=== PATIENT | male | born 1995 | race Caucasian/White ===

== ENCOUNTER 2025-02-13 13:59 | Emergency (ER) | payer SELFPAY ==
--- OUTSIDE RECORDS SUMMARY | 2025-02-13 14:06 | XMS_ITS | Clinical Summary ---
Author Organization [facility] [address] Address [address] [place] [address] Care Team Providers Care Engineering Test Specialist Name Role Phone Unavailable Primary Care Provider Unavailabl e Allergies No known active allergies Medications No known medications Active Problems Problem Noted Date Diagnosed Date Hypertrophic cardiomyopathy 05/06/2019 Obesity 11/20/2008 Heart disease Psychiatric disorder Family History Medical History Relation Name Comments No Known Problems Brother Arrhythmia Father COPD Mother No Known Problems Sister Relation Name Status Comments Brother Father Mother Alive Sister Alive Social History Tobacco Use Types Packs/Day Years Used Date Smoking Tobacco: Former Cigarettes 1.5 3 0 06/02/2013 - 06/02/2016 Smokeless Tobacco: Former Chew Quit: 06/02/2016 Sex and Gender Information Value Date Recorded Sex Assigned at Not on file 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 Gender Identity Not on file Sexual Orientation Not on file Occupation Industry Job Start Date Job End Date Not on file Not on file Not on file Not on file Last Filed Vital Signs Vital Sign Reading Time Taken Comments Blood Pressure 148/67 12/05/2019 1:48 PM CDT Pulse 66 12/05/2019 1:48 PM CDT Temperature 37 C (98.6 F) 12/05/2019 1:48 PM CDT Respiratory Rate 17 10/03/2015 5:33 PM CDT Oxygen Saturation 99% 12/05/2019 1:48 PM CDT Inhaled Oxygen Concentration - - Weight 118.8 kg (262 lb) 12/05/2019 1:48 PM CDT Height 185.4 cm (6' 1 ) 12/05/2019 1:48 PM CDT Body Mass Index 34.57 12/05/2019 1:48 PM CDT Plan of Treatment Health Maintenance Due Date Last Done Comments DTAP/TDAP/TD VACCINES (1 - Tdap) 2013 HEPATITIS B VACCINES (1 of 3 - 19+ 3-dose series) 11/2013 HPV VACCINES (1 - 3-dose SCDM series) 2021 INFLUENZA VACCINE (#1) 2024 Insurance
[2025-02-13 14:09] VITALS: BP 120/86; PULSE 87; RESP 18; TEMP 36.7; O2SAT 98; BMI 28.5
--- NOTE | 2025-02-13 14:16 | ECG_ITS ---
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 Measurements Intervals [place] Rate: 79 P: 60 ND: 168 QRS: -16 QRSD: 109 T: 30 QT: 363 QTc: 418 Interpretive Statements SINUS RHYTHM WITH MARKED SINUS ARRHYTHMIA SEPTAL MYOCARDIAL INFARCTION , OF INDETERMINATE AGE [40+ ms Q WAVE IN V1/V2] INTERVENTRICULAR CONDUCTION DELAY Compared to ECG 11/08/2014 19:14:13 Sinus bradycardia no longer present T-wave abnormality no longer present Possible ischemia no longer present Myocardial infarct finding still present Electronically Signed On 02-15-2025 08:39:45 CDT by Charlie Beverly M.D. [id number]
--- NOTE | 2025-02-13 14:47 | XR_ITS ---
WS: [id number] XR chest 1V portable [id number] REASON FOR EXAM: dyspnea/cough FINDINGS: Cardiac device over the left chest with left subclavian vein lead to the right ventricle. Heart and mediastinum are within normal limits. Calcified granulomatous disease bilaterally. No pulmonary parenchymal or pleural abnormality is identified. No significant abnormality of the bony thorax. XR/XR chest 1V portable [id number] IMPRESSION: No acute chest abnormality.
--- NOTE | 2025-02-13 15:07 | ECG_ITS ---
[email or web address] Test Date: 2025-02-13 Pat Name: Tad Pompa Department: Room: Gender: Male Potline Monitor: : 1995 Requested By: Sae Mann Order Number: [id number] David MD: Charlie Bveerly M.D. Measurements Intervals [place] Rate: 72 P: -1 LA: 175 QRS: 69 QRSD: 119 T: 30 QT: 394 QTc: 433 Interpretive Statements SINUS RHYTHM WITH SINUS ARRHYTHMIA SEPTAL MYOCARDIAL INFARCTION , OF INDETERMINATE AGE [40+ ms Q WAVE IN V1/V2] POSSIBLE INFERIOR MYOCARDIAL INFARCTION , PROBABLY OLD [30 ms Q WAVE IN II/aVF] Compared to ECG 11/08/2014 19:14:13 Sinus bradycardia no longer present T-wave abnormality no longer present Possible ischemia no longer present Myocardial infarct finding still present Electronically Signed On 02-15-2025 08:39:00 CDT by Charlie Beverly M.D. [email or web address] [id number]
--- NOTE | 2025-02-13 15:18 | W.ED.GENADLT ---
HPI - General Adult General: Chief complaint: General Medical Stated complaint: heart will stop beating when moving around Time Seen by Provider: 02/13/25 14:47 History of Present Illness: 29-year-old male presents to the emergency room via private vehicle. He has a history of hypertrophic cardiomyopathy states he feels like his heart is stopping at times. No chest pain. Patient does have an ICD in place. No chest pain or symptoms time no shortness of breath. Associated symptoms: Reports palpitations; Deny chest pain, dyspnea or rash Related Data Home Medications ?Medication ?Instructions ?Recorded ?Confirmed coenzyme Q10 100 mg capsule 100 mg PO DAILY 02/13/25 02/15/25 (CoQ-10) hawthorn 500 mg capsule 500 mg PO DAILY 02/13/25 02/15/25 Beat Root PO 02/15/25 Garlic Clove PO 02/15/25 02/15/25 Turmeric PO 02/15/25 02/15/25 magnesium 200 mg tablet 400 mg PO DAILY 02/15/25 02/15/25 omega 9-kuv-cbn-fish oil 1,000 mg 2 cap PO DAILY 02/15/25 02/15/25 (120 mg-180 mg) capsule (Fish Oil) Previous Rx's ?Medication ?Instructions ?Recorded metoprolol succinate 25 mg 25 mg PO DAILY #90 tabs 02/15/25 tablet,extended release 24 hr Allergies Allergy/AdvReac Type Severity Reaction Status Date / Time vancomycin Allergy ALGY-Redness Verified 02/15/25 14:56 of Skin Review of Systems Const: Denies: fever(s) or chills Card: Reports: palpitations and irregular heart rhythm; Denies: chest pain Resp: Denies: dyspnea GI: Denies: abdominal pain : Denies: dysuria, urinary frequency or urinary urgency Musc: Denies: neck pain or back pain Skin/Breast: Denies: rash PFSH ED PFSH: Social History Smoking and tobacco/nicotine status: current every day tobacco/nicotine user (nicotine patches) Physical Exam Const: GENERAL APPEARANCE: cooperative ORIENTATION/CONSCIOUSNESS: Yes awake, Yes oriented to person, Yes oriented to place and Yes oriented to time HENMT: COMMON NORMALS: normocephalic, atraumatic and hearing grossly normal bilaterally HEAD & SCALP: normocephalic and atraumatic Resp: COMMON NORMALS: normal respiratory effort, No retractions, No use of accessory muscles and clear to auscultation bilaterally AUSCULTATION: clear to auscultation bilaterally Cardio: COMMON NORMALS: regular rate, regular rhythm and No murmurs present (Cardio) RATE: regular rate RHYTHM: regular rhythm GI: COMMON NORMALS: Soft to palpation and No hepatosplenomegaly present AUSCULTATION: Yes normoactive bowel sounds PALPATION: Yes Soft to palpation, No Tenderness to palpation present (GI), No Guarding due to palpation present (GI) and Yes No hepatosplenomegaly present Extremity: COMMON NORMALS: normal to inspection, capillary refill normal, no clubbing, cyanosis or edema, no calf tenderness and no pedal edema Neuro: SENSORIUM/ORIENTATION: Yes oriented to person, Yes oriented to place and Yes oriented to time Skin: COMMON NORMALS: no rashes or lesions noted GENERAL SKIN EXAM: no rashes or lesions noted Course Vital Signs: Vital signs: Vital Signs Temperature 98.1 F 02/13/25 14:09 Pulse Rate 73 02/13/25 19:47 Respiratory Rate 15 02/13/25 19:47 Blood Pressure 138/82 02/13/25 19:47 Pulse Oximetry 94 02/13/25 19:47 Oxygen Delivery Me thod Room Air 02/13/25 17:13 [facility] - General Adult Medical Decision Making On the monitor patient reports having symptoms still have PVC and looks like he has a compensatory pause on his rhythm strip and his heart rate resumes. He has had no other significant abnormalities. Reviewing his pacemaker interrogation no significant findings. Discussed with on-call cardiology. Dr. Khalil recommends increasing fluid intake starting on Toprol-XL 12-1/2 mg daily as well as magnesium oxide 400 mg daily and follow-up in the cardiology clinic return if he has further problems. Reviewed findings and recommendations with the patient also recommend at least for now notes that he consider stopping the beet root garlic clove tumeric and Samson. Can continue the coenzyme Q Q10 and the fish oil. Return if has further problems. Medical Records I reviewed the patient's medical records. Lab Data I reviewed the patient's lab results. 02/13/25 15:45 02/13/25 15:45 Radiology Impressions Chest X-Ray 02/13/25 14:47 IMPRESSION: No acute chest abnormality. Laboratory Results WBC 7.04 10^3/uL (3.29-11.43) 02/13/25 15:45 RBC 4.97 10^6/uL (3.85-5.65) 02/13/25 15:45 Hgb 14.70 g/dL (11.27-16.99) 02/13/25 15:45 Hct 43.0 % (37-53) 02/13/25 15:45 MCV 86.5 fl (82-101) 02/13/25 15:45 MCH 29.6 pg (27-33) 02/13/25 15:45 MCHC 34.2 g/dL (30-55) 02/13/25 15:45 RDW 12.2 % (12.1-15.1) 02/13/25 15:45 Plt Count 217 10^3/cmm (157-399) 02/13/25 15:45 MPV 10.8 fL (7.4-10.4) H 02/13/25 15:45 Neut % (Auto) 69.6 % 02/13/25 15:45 Lymph % (Auto) 23.0 % 02/13/25 15:45 [place] % (Auto) 5.3 % 02/13/25 15:45 Eos % (Auto) 1.3 % 02/13/25 15:45 Baso % (Auto) 0.7 % 02/13/25 15:45 Neut # (Auto) 4.90 10^3/uL (1.8-7.7) 02/13/25 15:45 Lymph # (Auto) 1.6 10^3/uL (0.8-4.8) 02/13/25 15:45 [place] # (Auto) 0.4 10^3/uL (0.2-0.9) 02/13/25 15:45 Eos # (Auto) 0.1 10^3/uL (0.0-0.8) 02/13/25 15:45 Baso # (Auto) 0.1 10^3/uL (0.0-0.1) 02/13/25 15:45 Nucleated RBC % (auto) 0 % 02/13/25 15:45 Nucleated RBCs # 0.0 /100WBC 02/13/25 15:45 Sodium 140 mmol/L (136-145) 02/13/25 15:45 Potassium 3.7 mmol/L (3.5-5.1) 02/13/25 15:45 Chloride 101 mmol/L (98-107) 02/13/25 15:45 Carbon Dioxide 23 mmol/L (22-29) 02/13/25 15:45 Anion Gap 19.7 (5-19) H 02/13/25 15:45 BUN 10 mg/dL (6-20) 02/13/25 15:45 Creatinine 0.9 mg/dL (0.7-1.2) 02/13/25 15:45 GFR Calculation 99.1 mL/min (90-130) 02/13/25 15:45 Glucose 94 mg/dL (65-115) 02/13/25 15:45 Calculated Osmolality 289 mOsm/kg (285-295) 02/13/25 15:45 Calcium 10.1 mg/dL (8.5-10.5) 02/13/25 15:45 Total Bilirubin 0.9 mg/dL (0.15-1.2) 02/13/25 15:45 AST 16 U/L (0-40) 02/13/25 15:45 ALT 19 U/L (0-41) 02/13/25 15:45 Alkaline Phosphatase 68 U/L (40-130) 02/13/25 15:45 Troponin T Baseline 19 ng/L (0-15) H 02/13/25 15:45 Troponin T 120 Minute 18.22 ng/L (0-15) H 02/13/25 17:32 Delta Troponin T -0.78 ABS# (0-10) L 02/13/25 17:32 NT-Pro-B Natriuret Pep 103 pg/mL (0-125) 02/13/25 15:45 Total Protein 7.4 g/dL (6.6-8.7) 02/13/25 15:45 Albumin 4.9 g/dL (3.5-5.2) 02/13/25 15:45 Globulin 2.5 g/dL (1.3-4.6) 02/13/25 15:45 All radiology interpretation(s) finalized by discharge EKG Data EKG 1: Interpretation: EKG 02/13/2025 1416 sinus arrhythmia. Q waves in V1 and [address] changes noted rate of 79 MO interval 168 QTc 418 Computer generated interpretation: Chest X-Ray 02/13/25 14:47 IMPRESSION: No acute chest abnormality. EKG 2: Interpretation: EKG 02/13/2025 1507 sinus arrhythmia at rate of 72. 175 QTc 433. Q waves in V1 and 2 unchanged from earlier. Compared EKG earlier today slight increase in right Computer generated interpretation: Chest X-Ray 02/13/25 14:47 IMPRESSION: No acute chest abnormality. EKG 3: Interpretation: EKG 02/13/2025 1706 sinus arrhythmia with some sinus pauses rate of 71. Of 01 97 QTc 426. Q waves in V1 and V2 no changes from previous EKGs. Computer generated interpretation: Chest X-Ray 02/13/25 14:47 IMPRESSION: No acute chest abnormality. Discharge Plan Discharge Patient Disposition: Home Clinical Impression: Symptomatic PVCs, Hypertrophic cardiomyopathy Condition: Stable Prescriptions: No Action magnesium 200 mg tablet 400 mg PO DAILY Beat Root PO Garlic Clove PO Turmeric PO metoprolol succinate 25 mg tablet extended release 24 hr 25 mg PO DAILY Qty: 90 3RF hawthorn 500 mg Capsule 500 mg PO DAILY coenzyme Q10 [CoQ-10] 100 mg Capsule 100 mg PO DAILY omega 0-dpi-wvt-fish oil [Fish Oil] 1,000 (120-180) mg capsule 2 cap PO DAILY Discharge Orders: Discharge ED (Routine); Ordered 02/13/25 Ordered By: Sae Blackmon Discharge Diet: Usual diet Discharge Activity: Resume usual activity Patient Instructions: Opioid Safety, Pain Management, Patient Portal & Chela Instructions Activity Restrictions/Additional Instructions: Thank you for choosing [facility] for your healthcare needs today. It is very important that you follow up as instructed or that you return to the Emergency Department should you have concerns or if your condition changes or worsens in any way. Emergency department visits are focused on emergent conditions, in some cases you may require further evaluation on an outpatient basis. You are seen in the emergency room and report of pauses in your heartbeat we did notice on the rhythm strip after PVCs you would have compensatory pauses. There were no prolonged pauses on interrogation of your pacemaker no significant arrhythmias. We discussed case the on-call occupational therapy assistant they recommend starting you on metoprolol extended release 12-05/18 mg once a day. Also recommend that you take magnesium oxide 400 mg once daily. Case management make arrangements for you to follow-up with cardiology and also set you up for a 72-hour Holter monitor. (Please note that included in your discharge packet is information concerning opioid safety and pain management. This information is given to all patients were discharged from the ER regardless of their discharge diagnosis or the medicines they usually take or are prescribed.) Stand Alone Forms: Work/School Release Print Language: Icelandic Coding Level of Care Code ED Photographer Lithographic for Karlie Tiwari
[2025-02-13 16:02] LABS: Hematocrit 43.0 % (37-53); Hemoglobin 14.70 g/dL (11.27-16.99); Mean Corpuscular HGB Conc 34.2 g/dL (30-55); Mean Corpuscular Hemoglobin 29.6 pg (27-33); Mean Corpuscular Volume 86.5 fl (82-101); Nucleated Red Blood Cells % 0 %; Platelet Count 217 10^3/cmm (157-399); Red Blood Count 4.97 10^6/uL (3.85-5.65); White Blood Count 7.04 10^3/uL (3.29-11.43)
[2025-02-13 16:30] LABS: Troponin(5th) Baseline 19 ng/L (0-15)
[2025-02-13 16:43] LABS: Alanine Aminotransferase 19 U/L (0-41); Albumin Level 4.9 g/dL (3.5-5.2); Alkaline Phosphatase 68 U/L (40-130); Anion Gap 19.7 (5-19); Aspartate Amino Transferase 16 U/L (0-40); Blood Urea Nitrogen 10 mg/dL (6-20); Calcium 10.1 mg/dL (8.5-10.5); Carbon Dioxide 23 mmol/L (22-29); Chloride 101 mmol/L (98-107); Creatinine Clr Calc Pharmacy 147.9065; Globulin 2.5 g/dL (1.3-4.6); Glucose 94 mg/dL (65-115); NT Pro B Type Natriuretic Pept 103 pg/mL (0-125); Osmolality Calculated 289 mOsm/kg (285-295); Potassium 3.7 mmol/L (3.5-5.1); Sodium 140 mmol/L (136-145); Total Protein 7.4 g/dL (6.6-8.7)
--- NOTE | 2025-02-13 16:48 | ECG_ITS ---
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 Measurements Intervals [place] Rate: 71 P: 26 NM: 197 QRS: -16 QRSD: 120 T: 11 QT: 392 QTc: 426 Interpretive Statements SINUS RHYTHM WITH MARKED SINUS ARRHYTHMIA SEPTAL MYOCARDIAL INFARCTION , OF INDETERMINATE AGE [40+ ms Q WAVE IN V1/V2] Compared to ECG 02/13/2025 15:07:55 No significant changes Electronically Signed On 02-15-2025 09:00:45 CDT by Charlie Beverly M.D. [email or web address] [id number]
[2025-02-13 17:13] VITALS: BP 119/72; PULSE 68; O2SAT 96
[2025-02-13 18:45] LABS: Troponin 5 2HR 18.22 ng/L (0-15)
[2025-02-13 18:46] LABS: Troponin 5 2HR Delta -0.78 ABS# (0-10)
[2025-02-13 19:47] VITALS: BP 138/82; PULSE 73; RESP 15; O2SAT 94
--- NOTE | 2025-02-14 12:09 | DCPLANNER ---
Message sent to Cardiology
== END 2025-02-13 19:20 | disposition home or self-care (01) ==
PROVIDERS: Emergency Provider Family Medicine
DX: I49.3 Ventricular premature depolarization (principal); I42.2 Other hypertrophic cardiomyopathy; F17.290 Nicotine dependence, other tobacco product, uncomplicated
CPT/HCPCS: 36415; 71045; 80053; 83880; 84484; 85025; 93005; 99285

== ENCOUNTER 2025-03-16 09:07 | Outpatient (CLI) | payer OTHER, SELFPAY ==
--- NOTE | 2025-03-16 09:30 | USCV_ITS ---
Tad Pompa Age: 29 Gender: M : 1995 Exam Date: 03/16/2025 10:13 Ordering Phys: Charlie Beverly M.D ([email or web address]) Technologist: Gelacio Hartley Exam Location: [facility] [place] Indication: hypertrophic cardiomyopathy BP: 126 / 74 HR: 58 Rhythm: Sinus Technical Quality: Adequate MEASUREMENTS (Male / Female) Normal Values 2D ECHO LV Diastolic Diameter PLAX 4.5 cm 4.2 - 5.9 / 3.9 - 5.3 cm IVS Diastolic Thickness 1.1 cm 0.6 - 1.0 / 0.6 - 0.9 cm IVS Systolic Thickness 1.0 cm LVPW Diastolic Thickness 1.0 cm 0.6 - 1.0 / 0.6 - 0.9 cm LVPW Systolic Thickness 1.8 cm LVOT Diameter 2.3 cm LV Ejection Fraction 2D Teich 47.0 % LV Ejection Fraction MOD 4C 57.5 % LV Ejection Fraction MOD 2C 52.3 % LV Ejection Fraction 2C AL 51.0 % LA Diameter 4.0 cm RA Systolic Volume 4C AL 82.3 ml RA Systolic Volume 4C MOD 80.0 ml LA Sys Volume AL 124.9 cm cubed LA Sys Volume Index AL 55.7 cm cubed/m squared Aorta at Sinotubular Diameter 3.1 cm IVC Diameter 2.0 cm M-MODE LA Ao Ratio MM 1.4 AV Cusp Separation MM 2.7 cm DOPPLER AV Peak Velocity 133.0 cm/s LVOT Peak Velocity 107.0 cm/s AV Area Cont Eq vti 3.5 cm squared AV Area Cont Eq pk 3.3 cm squared MV Peak Velocity 70.0 cm/s MV Area PHT 5.8 cm squared Mitral E to A Ratio 1.4 TV Peak Velocity 303.5 cm/s TR Peak Velocity 332.0 cm/s TR Peak Gradient 44.1 mmHg TR Mean Velocity 254.0 cm/s TR Mean Gradient 28.8 mmHg TR Velocity Time Integral 81.3 cm PV Peak Velocity 83.0 cm/s RV Ejection Time 0.3 s FINDINGS Left Ventricle Normal left ventricular cavity size. Moderately increased left ventricular cavity size. Left ventricular ejection fraction is estimated at 55 %. Normal diastolic function. Right Ventricle Catheter/pacemaker wire visualized in the right ventricle. Right Atrium Catheter/pacemaker wire in the right atrial cavity. Left Atrium Normal left atrial size. IA Septum Normal appearance of the interatrial septum. Mitral Valve Mildly thickened mitral valve. No mitral valve stenosis. Mild mitral valve regurgitation. Aortic Valve Mild aortic valve calcification. Possible bicuspid aortic valve. No aortic valve stenosis. No aortic valve regurgitation. Tricuspid Valve Normal tricuspid valve structure. No tricuspid valve stenosis or regurgitation. Normal pulmonary pressure. Pulmonic Valve Normal pulmonic valve structure. No pulmonic valve stenosis or regurgitation. Pericardium No pericardial effusion. Aorta Normal diameter of the aortic root and ascending thoracic aorta. IVC Normal IVC diameter. CONCLUSIONS Normal left ventricular cavity size. Moderately increased left ventricular cavity size. Left ventricular ejection fraction is estimated at 55 %. Normal diastolic function. Mild aortic valve calcification. Possible bicuspid aortic valve. No aortic valve stenosis. No aortic valve regurgitation. There is no pericardial effusion. Right atrial pressure is around 5 mm of mercury. Ricardo Kinney MD (Electronically Signed) Final Date: 20 March 2025 20:20 S
== END 2025-03-16 09:08 | disposition home or self-care (01) ==
LOC: RAD 09:11
PROVIDERS: PCP Student in an Organized Health Care Education/Training Program; Visit Provider Internal Medicine
DX: I42.2 Other hypertrophic cardiomyopathy (principal); I51.7 Cardiomegaly; I35.8 Other nonrheumatic aortic valve disorders
CPT/HCPCS: 93306